=== PATIENT | female | born 1945 ===

== ENCOUNTER 2018-08-06 09:18 | Outpatient (CLI) | payer OTHER ==
[~2018-08-06] VITALS: Ht 152.4 cm; Wt 66.7 kg
== END 2018-08-06 09:30 | disposition home or self-care (01) ==
LOC: OFIC 805 09:18
DX: H61.23 Impacted cerumen, bilateral (principal); H90.3 Sensorineural hearing loss, bilateral; R42 Dizziness and giddiness